=== PATIENT | female | born 1970 | race Caucasian/White ===

== ENCOUNTER 2016-11-09 10:06 | Emergency (ER) | payer OTHER ==
[~2016-11-09] VITALS: Ht 149.9 cm; Wt 74.4 kg
[~2016-11-09 10:06] MED LIST: ESTR1PAT49 TP; LEVO200T23 PO; ONDA4TAB7 SL; OXYC1TAB7 PO
[2016-11-09 13:00] VITALS: BP 116/67
== END 2016-11-09 13:52 | disposition home or self-care (01) ==
LOC: ED 12:40
DX: L04.9 Acute lymphadenitis, unspecified (principal); B00.1 Herpesviral vesicular dermatitis; Z90.49 Acquired absence of other specified parts of digestive tract
CPT/HCPCS: 36415; 76536; 84436; 84439; 84443; 99285

== ENCOUNTER 2017-01-20 15:49 | Emergency (ER) | payer OTHER ==
[~2017-01-20] VITALS: Ht 149.9 cm; Wt 75.7 kg
[2017-01-20] MEDS ORDERED: SODIUM CHLORIDE 0.9% 1,000ML IVBOLUS ONE ×2 (16:00→16:30)
[2017-01-20] MEDS ORDERED: SODIUM CHLORIDE FLUSH 10ML SYR IVF ONE ×2 (16:00→16:30)
[2017-01-20] MEDS ORDERED: ONDANSETRON 2MG/ML, 2ML ONE (16:26)
[2017-01-20] MEDS ORDERED: MORPHINE SULFATE 4 MG/ML, 1ML ONE ×2 (16:26→17:44)
[2017-01-20] MEDS ORDERED: ONDANSETRON 2MG/ML, 2ML IVPush ONE (16:30)
[2017-01-20 16:33] LABS: BLOOD UREA NITROGEN 8 mg/dL (7-18)
[2017-01-20 16:38] LABS: ASPARTATE AMINO TRANSFERASE 52 U/L (15-37)
[2017-01-20] MEDS: MORPHINE SULFATE 4 MG/ML, 1ML IVPush PRN ×2 (16:39→17:49)
[2017-01-20] MEDS ORDERED: LEVO125T45 PO (16:41)
[2017-01-20] MEDS ORDERED: OMNIPAQUE 350 MG/ML, 100ML BOTTLE ONE (17:26)
[2017-01-20 18:39] VITALS: BP 104/69
== END 2017-01-20 18:43 | disposition home or self-care (01) ==
LOC: ED 18:37
DX: R19.7 Diarrhea, unspecified (principal); R11.2 Nausea with vomiting, unspecified; R10.11 Right upper quadrant pain; R10.12 Left upper quadrant pain; Z90.710 Acquired absence of both cervix and uterus
CPT/HCPCS: 36415; 74177; 80053; 81003; 83690; 85025; 85610; 93005; 96361; 96374; 96375; 96376; 99285; J2405; J7030; Q9967

== ENCOUNTER 2017-08-10 10:54 | Emergency (ER) | payer OTHER ==
[~2017-08-10] VITALS: Ht 149.9 cm; Wt 67.0 kg
[~2017-08-10 10:54] MED LIST changes: +LEVO125T63 PO; -LEVO200T23 PO; +LEVO200T42 PO
[2017-08-10 10:58] VITALS: BP 112/77
[2017-08-10 12:25] LABS: HEMATOCRIT 40.2 % (34.6-47.8); HEMOGLOBIN 14.1 g/dL (11.7-16.4); WHITE BLOOD COUNT 5.9 x10^3/uL (3.4-10)
[2017-08-10] MEDS ORDERED: MAALOX/HYOSCYAMINE/LIDOCAINE 45 ML BTL PO ONE (12:30)
[2017-08-10] MEDS: FAMOTIDINE 20 MG/2 ML IVP ONE ×2 (12:30→13:17)
[2017-08-10 12:36] LABS: ASPARTATE AMINO TRANSFERASE 23 U/L (15-37); BLOOD UREA NITROGEN 6 mg/dL (7-18)
[2017-08-10] MEDS ORDERED: FAMOTIDINE 20 MG TABLET ONE (12:47)
[2017-08-10] MEDS ORDERED: MAALOX/HYOSCYAMINE/LIDOCAINE 45 ML BTL ONE (12:47)
[2017-08-10] MEDS ORDERED: FAMOTIDINE 20 MG TABLET PO ONE (13:00)
== END 2017-08-10 14:15 | disposition home or self-care (01) ==
LOC: ED 13:57
DX: R10.84 Generalized abdominal pain (principal); Z90.49 Acquired absence of other specified parts of digestive tract; Z90.710 Acquired absence of both cervix and uterus
CPT/HCPCS: 36415; 74022; 80053; 81003; 83690; 84703; 85025; 99285; S0028

== ENCOUNTER 2019-11-12 06:15 | Emergency (ER) | payer OTHER ==
[~2019-11-12] VITALS: Ht 149.9 cm; Wt 64.7 kg
[2019-11-12 06:26] VITALS: BP 128/93
--- NOTE | 2019-11-12 06:39 | NUR ---
PT DISCHARGED FROM [facility] WITH WORK NOTE THAT PT REQUESTED
== END 2019-11-12 06:41 | disposition home or self-care (01) ==
LOC: ED 06:38
DX: R50.9 Fever, unspecified (principal); R09.81 Nasal congestion; Z00.00 Encounter for general adult medical examination without abnormal findings
CPT/HCPCS: 99281

== ENCOUNTER 2020-02-14 11:17 | Emergency (ER) | payer OTHER ==
[~2020-02-14] VITALS: Ht 149.9 cm; Wt 63.3 kg
--- NOTE | 2020-02-14 11:34 | NUR ---
warm blanket provided. i am at the bedside for my assessment. awaiting an md to consult.
--- NOTE | 2020-02-14 11:39 | NUR ---
recent travel x2 out of state. lots of public exchange recently.
--- NOTE | 2020-02-14 11:43 | NUR ---
pt states loss of taste and smell
--- NOTE | 2020-02-14 11:59 | NUR ---
md is at the bedside for assessment
[2020-02-14 12:27] LABS: BASOPHILS # (AUTO) 0.02 x10^3/uL (0-0.1); BASOPHILS % (AUTO) 0 % (0-1); EOSINOPHILS # (AUTO) 0.11 x10^3/uL (0-0.4); EOSINOPHILS % (AUTO) 2 % (1-7); LYMPHOCYTES # (AUTO) 2.61 x10^3/uL (1-3.4); LYMPHOCYTES % (AUTO) 39 % (22-44); MD NO; MEAN CORPUSCULAR HEMOGLOBIN 31.4 pg (27.0-34.8); MEAN CORPUSCULAR HGB CONC 34.2 g/dL (32.4-35.8); MEAN CORPUSCULAR VOLUME 91.8 fL (80-100); MEAN PLATELET VOLUME 7.3 fL (7.4-10.4); MONOCYTES # (AUTO) 0.39 x10^3/uL (0.2-0.8); MONOCYTES % (AUTO) 6 % (2-9); NEUTROPHILS # (AUTO) 3.56 x10^3/uL (1.8-6.8); NEUTROPHILS % (AUTO) 53 % (42-75); PLATELET COUNT 335 x10^3/uL (130-400); RED BLOOD COUNT 4.65 x10^6/uL (3.82-5.3); RED CELL DISTRIBUTION WIDTH 12.2 % (9.6-15.2)
[2020-02-14] MEDS ORDERED: ONDANSETRON ODT 4 MG PO ONE (12:30)
[2020-02-14 12:33] LABS: MICROSCOPIC AUTO
[2020-02-14 12:59] LABS: ALBUMIN 3.7 g/dL (3.4-5.0); ANION GAP 7 mmol/L (5-15); CALCIUM 8.5 mg/dL (8.5-10.1); CHLORIDE 105 mmol/L (98-107)
[2020-02-14 13:03] LABS: ALANINE AMINOTRANSFERASE 29 U/L (12-78); ALKALINE PHOSPHATASE 98 U/L (45-117); BILIRUBIN,TOTAL 1.4 mg/dL (0.2-1.0); CREATININE 0.72 mg/dL (0.55-1.02); TOTAL PROTEIN 7.4 g/dL (6.4-8.2)
[2020-02-14] MEDS ORDERED: POTASSIUM CHLORIDE 20 MEQ TAB.ER.PRT PO ONE (13:30)
== END 2020-02-14 13:15 | disposition home or self-care (01) ==
LOC: ED 13:04
DX: N30.00 Acute cystitis without hematuria (principal); Z20.828 Contact with and (suspected) exposure to other viral communicable diseases; R50.9 Fever, unspecified; R05 Cough; E87.6 Hypokalemia; R11.2 Nausea with vomiting, unspecified; R19.7 Diarrhea, unspecified
CPT/HCPCS: 36415; 71045; 80053; 81001; 83690; 85025; 87086; 99284; Q0162; U0001

== ENCOUNTER 2020-05-14 11:01 | Emergency (ER) | payer OTHER ==
[~2020-05-14] VITALS: Ht 149.9 cm; Wt 67.1 kg
[2020-05-14 11:03] VITALS: BP 112/71
[2020-05-14] MEDS ORDERED: DEXAMETHASONE 4 MG TABLET PO STA (11:33)
[2020-05-14] MEDS ORDERED: DEXAMETHASONE 4 MG TABLET ONE (11:41)
[2020-05-14] MEDS ORDERED: IBUPROFEN 600 MG TABLET ONE (11:42)
[2020-05-14] MEDS ORDERED: IBUPROFEN 200 MG TABLET PO ONE (12:00)
--- NOTE | 2020-05-14 13:05 | NUR ---
REPORT FROM [facility]
--- NOTE | 2020-05-14 13:39 | NUR ---
Patient/Caregiver given discharge instructions and they have confirmed that they understand the instructions. Patient ambulatory with steady gait.
== END 2020-05-14 13:41 | disposition home or self-care (01) ==
LOC: ED 11:36
DX: J02.8 Acute pharyngitis due to other specified organisms (principal); Z20.828 Contact with and (suspected) exposure to other viral communicable diseases; B97.89 Other viral agents as the cause of diseases classified elsewhere; R05 Cough; Z86.39 Personal history of other endocrine, nutritional and metabolic disease; Z90.710 Acquired absence of both cervix and uterus; Z90.49 Acquired absence of other specified parts of digestive tract
CPT/HCPCS: 36415; 71045; 87081; 87635; 87880; 99284